=== PATIENT | female | born 1940 | race Caucasian/White ===

== ENCOUNTER 2017-04-29 10:00 | Emergency (ER) | payer MEDICARE ==
[~2017-04-29] VITALS: Ht 152.4 cm; Wt 100.7 kg
--- NOTE | ~2017-04-29 | CT4 ---
[facility] A Service of [facility] RADIOLOGY TEXT RESULTS PATIENT: NAOMIE MAKI LOCATION: [facility] : 44 UNIT #: [id number] AGE: [address]: Dylan Clarke MD SEX: F ORDER DR: [id number] [facility] [address] [place], [place] [address] [id number] MR#: [id number] Acc #: [id number] NAME: NAOMIE MAKI. : 1940 SEX: F STUDY DATE/TIME: 04/29/2017 13:29 UNIT: MATT ROOM: STUDY DESCRIPTION: CT Abd and Pelv Wo Cont Attending Physician: Dylan Clarke M.D. Ordering Physician: Dylan Clarke M.D. Primary Care Physician: Clint Rios M.D. MEDICAL IMAGING REPORT This report is preliminary unless electronic signature is present EXAM CT abdomen and pelvis without contrast INDICATIONS Left-sided abdominal pain for 4 days. Diarrhea. Remote history of renal cell carcinoma status post left nephrectomy. TECHNIQUE CT abdomen and pelvis without contrast. Coronal and sagittal reconstructions were obtained. This CT exam was performed with one or more of the following radiation dose reduction techniques: automatic exposure control, adjustment of mA and/or kV according to patient size, and iterative reconstruction. COMPARISON CT abdomen and pelvis 07/16/2015. FINDINGS ABDOMEN: There is partial nephrectomy changes associated with the superior pole left kidney. There is generalized renal cortical atrophy of both kidneys. No hydronephrosis or urinary calculi. Noncontrast evaluation of the remaining solid abdominal organs is within normal limits. The bowel is not dilated. The appendix is surgically absent. There are scattered colonic diverticula. No diverticulitis. The abdominal aorta is normal in caliber. There is a small umbilical hernia. PELVIS: The bladder is unremarkable. The uterus is surgically absent. [facility] A Service of [facility] RADIOLOGY TEXT RESULTS PATIENT: NAOMIE MAKI LOCATION: [facility] : 44 UNIT #: [id number] AGE: [address]: Dylan Clarke MD SEX: F ORDER DR: The ovaries are normal. No acute osseous abnormalities. There is pelvic floor insufficiency with descent of the middle and posterior compartments below the pubococcygeal line. IMPRESSION 1. No acute findings in the abdomen or pelvis. 2. Left-sided colonic diverticulosis, no convincing evidence of diverticulitis. 3. Pelvic floor insufficiency. 4. Bilateral renal atrophy. 5. Small umbilical hernia. Dictated by... Peter Francois M.D. THIS IS AN ELECTRONICALLY VERIFIED REPORT Peter Francois M.D. at 04/30/2017 5:15 PM FERMIN/jaison TD: 04/30/2017 15:54 JOB #: [id number] MEDICAL IMAGING REPORT Page 1 of 1 COPY
[~2017-04-29 10:00] MED LIST: ADVAIR 2501 DISK W/D PO; ADVAIR 500-501 EACH INH; ADVAIR INH; ALBUTEROL17 GM INH; ASPIRIN PO; ASPIRIN81 M1; ATENOLOL25 MG PO; AUGMENTIN875 MG PO; CAPOZIDE PO; CARAFATE1 G PO; CELEBREX PO; DIFLORASONE DIA TOP; ENTOCORT EC3 MG PO; FERROUS SULFATE PO; HCTZ PO; HYZAAR 50-1 TAB 50-1 DOB; IRON INFUSION; LEVOTHYROXINE100 MCG PO; LISINOPRIL10 MG PO; LOMOTIL TABLET1 TAB PO; LOSARTAN-HCTZ1 EAC3 PO; NEXIUM PO; OMEPRAZOLE20 M2 PO; PREVACID PO; PRILOSEC PO; PROAIR HFA8.5 GM IH; PROMETHAZINE D118 ML PO; ROBITUSSIN A-C S5 ML PO; SINGULAIR PO; STOOL SOFTENER100 M1 PO; SYNALAR; SYNTHROID PO; VOLTAREN75 MG PO; WELCHOL625 MG PO; ZYLOPRIM100 MG PO; ZYRTEC10 M2 PO; ZYRTEC5 M2 PO
[2017-04-29 11:13] LABS: URINE SOURCE CLEAN CATCH
[2017-04-29 11:16] LABS: BASOPHIL# 0.1 X10e3 (0-0.3); BASOPHIL% 1.8 % (0-2.5); EOSINOPHIL# 0.4 X10e3 (0-0.7); EOSINOPHIL% 5.7 % (0.0-7.0); HEMATOCRIT 39.4 % (35.0-45.0); HEMOGLOBIN 13.1 gm/dL (12.0-16.0); LYMPHOCYTE# 1.1 X10e3 (1.0-3.5); LYMPHOCYTE% 17.1 % (17.0-45.0); MEAN CELL VOLUME 98.5 FL (83-96); MEAN CORPUSCULAR HEMOGLOBIN 32.6 PG (28-34); MEAN CORPUSCULAR HGB CONC 33.1 g/dL (30-36); MEAN PLATELET VOLUME 8.1 FL (6.5-11.5); MONOCYTE# 0.3 X10e3 (0-1.0); MONOCYTE% 5.2 % (3.0-12.0); NEUTROPHIL# 4.4 X10e3 (1.5-7.1); NEUTROPHIL% 70.2 % (40-75); PLATELET COUNT 232 X10e3 (140-420); RED CELL DISTRIBUTION WIDTH 14.1 % (11.0-15.5); URINE APPEARANCE CLEAR; URINE BILIRUBIN NEG (NEG); URINE BLOOD NEG (NEG); URINE COLOR YELLOW; URINE GLUCOSE NEG (NEG); URINE KETONE NEG (NEG); URINE LEUKOCYTE ESTERASE NEG (NEG); URINE NITRATE NEG (NEG); URINE PH 5.5 (5-8); URINE PROTEIN NEG (NEG); URINE SPECIFIC GRAVITY 1.017 (1.003-1.035); URINE UROBILINOGEN 0.2 MG/DL (NEG); WHITE BLOOD COUNT 6.2 X10e3 (4.0-10.5)
[2017-04-29 11:20] LABS: DIFF IND NO
[2017-04-29 11:21] LABS: CULTURE INDICATED? NO
[2017-04-29 12:01] LABS: ALBUMIN SERUM 4.2 g/dL (3.5-5.0); BILIRUBIN, DIRECT 0.1 mg/dL (0.0-0.2); BILIRUBIN,INDIRECT 0.5 mg/dL (0.0-0.9); BILIRUBIN,TOTAL 0.6 mg/dL (0.2-2.0); BUN/CREATININE RATIO 22.5; CALCIUM SERUM 9.2 mg/dL (8.4-10.2); CREATININE SERUM 1.2 mg/dL (0.6-1.4); GLOM FILT RATE Estimated 44.5 mL/min (>60); POTASSIUM 4.5 mmol/L (3.5-5.1); PROTEIN TOTAL SERUM 7.2 g/dL (6.0-8.3)
== END 2017-04-29 14:50 | disposition home or self-care (01) ==
LOC: CED 10:00
DX: R10.32 Left lower quadrant pain (principal); R19.7 Diarrhea, unspecified; I10 Essential (primary) hypertension; J44.9 Chronic obstructive pulmonary disease, unspecified; Z88.1 Allergy status to other antibiotic agents; Z98.890 Other specified postprocedural states
CPT/HCPCS: 36415; 74176; 80048; 80076; 81003; 83690; 85025; 96360; 99284

== ENCOUNTER → 2017-05-10 | Outpatient (CLI) | payer MEDICARE | END | disposition home or self-care (01) | LOC: CLAB 11:49 | DX: R19.7 Diarrhea, unspecified (principal) | CPT/HCPCS: 82274; 83630; 87045; 87177; 87209; 87427; 87899 ==

== ENCOUNTER → 2017-05-11 | Outpatient (CLI) | payer MEDICARE | END | disposition home or self-care (01) | LOC: CLAB 10:28 | DX: R19.7 Diarrhea, unspecified (principal) | CPT/HCPCS: 86677 ==